=== PATIENT | male | born 1960 | race Caucasian/White ===

== ENCOUNTER 2020-12-21 21:09 | Inpatient (IN) | payer OTHER ==
[~2020-12-21] VITALS: Ht 180.3 cm; Wt 72.6 kg
[~2020-12-21 21:09] MED LIST: ASPIR 8181 MG PO; ASPIRIN EC81 M1; ASPIRIN325 PO; B COMPLEX-VITA1 EACH; EFFIENT10 MG OR; FISH OIL 1,0001 EAC5 OR; FISHOIL; FLAX OIL1000 MG; GENTAMICIN SU3 MG/ML INTRAOCULR; LISINOPRIL10 MG PO; MINIPRIN81 MG; NITROGLYCERIN0.4 MG SUBLING; SIMVASTATIN80 MG PO; VITAMIN B-125000 MCG OR; VITAMIN D-32000 UNIT OR; VITAMIN E400 UNIT; XANAX1 MG PO
[2020-12-21 21:12] VITALS: BP 152/100
[2020-12-21 21:26] LABS: HEMATOCRIT 50.3 % (42.0-52.0); HEMOGLOBIN 16.7 gm/dL (14.0-18.0); MCH 31.3 pg (26.0-34.0); MCHC 33.2 g/dL (28.0-37.0); MCV 94.4 fL (80.0-100.0); MPV 7.7 fl. (7.2-11.1); RBC 5.33 mil/uL (4.50-6.00); RDW-CV 14.2 % (10.5-14.5)
[2020-12-21 21:37] LABS: CALCIUM 9.4 mg/dL (8.5-10.1); CREATININE 1.4 mg/dL (0.6-1.3); POTASSIUM 3.5 mmol/L (3.5-5.1)
[2020-12-21 21:41] LABS: ACETAMINOPHEN < 2 ug/mL (10-30); ALBUMIN 4.2 g/dL (3.4-5.0); ALCOHOL < 10 mg/dL (<10); SALICYLATE 4.9 mg/dL (2.8-20.0); TOTAL BILIRUBIN 1.1 mg/dL (<0.1-1.0); TOTAL PROTEIN 7.8 g/dL (6.4-8.2)
[2020-12-21 22:37] LABS: URINE BLOOD 1+ (Negative); URINE COLOR YELLOW; URINE GLUCOSE-RANDOM NEGATIVE (Negative); URINE KETONES NEGATIVE (Negative); URINE LEUKOCYTES NEGATIVE (Negative); URINE NITRITE NEGATIVE (Negative); URINE PROTEIN 2+ (Negative); URINE SPECIFIC GRAVITY >= 1.030 (1.005-1.030); URINE UROBILINOGEN 0.2 E.U./dl (0.2-1.0)
[2020-12-21 22:42] LABS: ICTOTEST (BILI CONFIRMATORY) Negative (Negative); URINE BILIRUBIN 1+ (Negative); URINE CLARITY HAZY
[2020-12-21 22:44] LABS: AMP/METHAMP Negative (Negative); BARBITURATES Negative (Negative); BENZODIAZEPINES POSITIVE (Negative); COCAINE Negative (Negative); METHADONE Negative (Negative); OPIATES Negative (Negative); PCP Negative (Negative); THC Negative (Negative)
[2020-12-21 23:00] LABS: HYALINE CASTS 0-3 Few /LPF (None Seen); MUCUS 4-6 Moderate strn/LPF (None Seen); SQUAMOUS 0-3 Few /LPF (0-3)
[2020-12-21 23:01] LABS: BACTERIA 1-9 Few /HPF (None Seen); URINE RBC 3-10 Few /HPF (0-2); URINE WBC 0-5 Rare /HPF (0-5)
[2020-12-21 23:02] LABS: AMORPHOUS URATES Few /LPF (None Seen)
[2020-12-22] VITALS (7 sets, daily range): BP systolic 135–179; BP diastolic 80–98
--- NOTE | 2020-12-22 10:07 | EKG ---
[place] [address] ELECTROCARDIOGRAM REPORT Name: TORIE MONGE Room: [address] M.R.#: [id number] Admission: 12/21/20 Attend Phys: Elmo Mc, Discharge: Date of : 62 Date of Service: 12/21/202119 Report #: [id number] THIS REPORT FOR: //name// [facility] ED Test Date: 2020-12-21 Test Time: 21:20:40 Pat Name: TORIE MONGE Department: Room: [facility] Gender: M Human Services Care Specialist: SCOTT : 1960 Requested By: Jazmin Covarrubias Order Number: [id number] MD: Kendell Rocha Measurements Intervals [place] Rate: 78 P: 52 [place]: 143 QRS: 46 QRSD: 92 T: 31 QT: 401 QTc: 457 Interpretive Statements Sinus rhythm Consider left ventricular hypertrophy Baseline wander in lead(s) V2 Compared to ECG 12/30/2016 18:16:09 No significant changes Electronically Signed On 12-22-2020 10:07:43 CDT by Kendell Rocha [email or web address] <ELECTRONICALLY SIGNED> By: Kendell Rocha MD, [facility] 12/22/201006 19 19 Kendell Rocha MD, [facility] /EPI
--- NOTE | 2020-12-22 15:37 | NUR ---
Arrived to 215. The patient is alert.Denies pain. Transfers with stand by assist. IV access LAC.
[2020-12-23 04:07] VITALS: BP 134/70
[2020-12-23 07:35] LABS: HEMATOCRIT 41.9 % (42.0-52.0); MCH 31.3 pg (26.0-34.0); MCHC 33.4 g/dL (28.0-37.0); MCV 93.6 fL (80.0-100.0); RBC 4.48 mil/uL (4.50-6.00); RDW-CV 13.7 % (10.5-14.5); WBC 12.8 thou/uL (4.0-11.0)
[2020-12-23 08:00] VITALS: BP 140/73
[2020-12-23 08:17] LABS: ALBUMIN 3.3 g/dL (3.4-5.0); ALKALINE PHOSPHATASE 94 U/L (46-116); ANION GAP 5 mmol/L (7-16); BUN 9 mg/dL (7-18); CALCIUM 8.2 mg/dL (8.5-10.1); CHLORIDE 105 mmol/L (98-107); CHOLESTEROL 165 mg/dL (<200); CO2 32 mmol/L (21-32); CREATININE 1.3 mg/dL (0.6-1.3); GLUCOSE 90 mg/dL (70-99); HDL CHOLESTEROL 48 mg/dL (>40); LDL CHOLESTEROL 100 mg/dL (<100); POTASSIUM 3.9 mmol/L (3.5-5.1); SGOT 48 U/L (15-37); SGPT 53 U/L (30-65); SODIUM 142 mmol/L (136-145); TC:HDL 3.4 Ratio (Not establshd); TOTAL BILIRUBIN 1.1 mg/dL (<0.1-1.0); TOTAL PROTEIN 5.7 g/dL (6.4-8.2); TRIGLYCERIDE 89 mg/dL (<150); VLDL 18 mg/dL (<40)
[2020-12-23 08:19] LABS: SERUM ASSESSMENT Clear
--- NOTE | 2020-12-23 08:48 | NUR ---
PT IS ABLE TO COMMUNICATE HIS NEEDS TO STAFF EFFECTIVELY. HE HAS DENIED THE NEED FOR PAIN MEDICATION UP TO 0700 THIS MORNING. CIWA SCORING PROTOCOL MAINTAINED. POSSIBLE DISCHARGE SOON.
[2020-12-23 12:00] VITALS: BP 147/93
--- NOTE | 2020-12-23 13:05 | NUR ---
Nutrition: Pt admitted with AMS, depression. Seen for nsg risk. Pt stated he usually weighs 155-160#; I weighed him at 155# in bed today. H/o IA and stents, ETOH. Albumin 3. He said he feels like he has lost some wt recently d/t not wanting to cook for self. He explained he has depression and lives alone, and he doesn't have the motivation to cook for himself or to clean up a kitchen when he's only feeding one person. He eats small meals, enjoys cold cereal and canned soups and sandwiches. He does drink Ensure on occassion; agreed to one here. GAURI triplett. Encouraged MVI use at home as well. Mild risk.
--- NOTE | 2020-12-23 13:52 | NUR ---
Pt is A&O. Resides at home alone. Independent. No DME. No hx of HH or SNF. Goal is home. Neuro consulted. CM to offer community resources for depression, Pt out of room when CM went, will try again.
[2020-12-23 16:00] VITALS: BP 152/83
--- NOTE | 2020-12-23 16:24 | 2DMMODE ---
[place] [address] 2 D/M-MODE ECHOCARDIOGRAM Name: TORIE MONGE Room: [address] Gage Durbin#: [id number] Admission: 12/21/20 Attend Phys: Elmo Mc, Discharge: Date of : 62 Date of Service: 12/23/20 1624 Report #: [id number] THIS REPORT FOR: cc: FAM - No family physician/PCP FAM - No family physician/PCP Manoj Corrigan MD [facility] ~ APPROVED REPORT Study performed: 12/23/2020 10:18:08 EXAM: Comprehensive 2D, Doppler, and color-flow Echocardiogram Patient Location: In-Patient Room #: [facility] Status: routine BSA: 1.92 HR: 75 bpm BP: 134/70 mmHg Rhythm: NSR Other Information Study Quality: Good Indications CVA/TIA Echo Enhancing Agent Indication: Rule out Shunt Agent(s) / Amount(s) Used: Agitated Saline 10 cc 2D Dimensions IVSd: 11.04 (7-11mm) LVOT Diam: 20.44 (18-24mm) LVDd: 47.78 mm PWd: 8.59 (7-11mm) Ascending Ao: 33.96 (22-36mm) LVDs: 29.84 (25-40mm) Aortic Root: 32.80 mm Volumes Left Atrial Volume (Systole) LA ESV Index: 28.30 mL/m2 Aortic Valve AoV Peak Jus.: 1.28 m/s AO Peak Gr.: 6.59 mmHg LVOT Max P.29 mmHg AO Mean Gr.: 3.58 mmHg LVOT Mean P.04 [place] [address] 2 D/M-MODE ECHOCARDIOGRAM Name: TORIE MONGE Room: [address] Gage AlbaradoRPetros#: [id number] Admission: 12/21/20 Attend Phys: Elmo Mc, Discharge: Date of : 62 Date of Service: 12/23/20 1624 Report #: [id number] LVOT Max V: 1.04 m/s AO V2 VTI: 27.08 cm LVOT Mean V: 0.65 m/s JOSE (VTI): 2.46 cm2 LVOT V1 VTI: 20.33 cm Mitral Valve E/A Ratio: 1.12 MV Decel. Time: 176.12 ms MV E Max Jus.: 0.72 m/s MV PHT: 51.07 ms MVA (PHT): 4.31 cm2 TDI E/Lateral E': 7.20 E/Medial E': 10.29 Medial E' Jus.: 0.07 m/s Lateral E' Jus.: 0.10 m/s Pulmonary Valve PV Peak Jus.: 0.92 m/s PV Peak Gr.: 3.36 mmHg Tricuspid Valve RAP Estimate: 5.00 mmHg TR Peak Gr.: 22.21 mmHg RVSP: 27.00 mmHg PA Pressure: 27.00 mmHg Left Ventricle The left ventricle is normal size. There is normal LV segmental wall motion. There is normal left ventricular wall thickness. Left ventricular systolic function is normal. LVEF is 60-65%. Transmitral Doppler flow pattern suggests impaired LV relaxation. Right Ventricle The right ventricle is normal size. The right ventricular systolic function is normal. Atria The left atrium size is normal. The interatrial septum is intact with no evidence for an atrial septal defect. The right atrium size is normal. Aortic Valve The aortic valve is normal in structure. No aortic regurgitation is present. There is no aortic valvular stenosis. Mitral Valve The mitral valve is normal in structure. Trace mitral regurgitation. No evidence [place] [address] 2 D/M-MODE ECHOCARDIOGRAM Name: TORIE MONGE Room: [address] M.RPetros#: [id number] Admission: 12/21/20 Attend Phys: Elmo Mc, Discharge: Date of : 62 Date of Service: 12/23/20 1624 Report #: [id number] Tricuspid Valve The tricuspid valve is normal in structure. Trace tricuspid regurgitation. No pulmonary hypertension. Pulmonic Valve The pulmonary valve is normal in structure. Trace pulmonic regurgitation. Great Vessels The aortic root is normal in size. IVC is normal in size and collapses >50% with inspiration. Pericardium There is no pericardial effusion. <Conclusion> The left ventricle is normal size. There is normal left ventricular wall thickness. Left ventricular systolic function is normal. LVEF is 60-65%. Transmitral Doppler flow pattern suggests impaired LV relaxation. The interatrial septum is intact with no evidence for an atrial septal defect. Trace tricuspid regurgitation. No pulmonary hypertension. IVC is normal in size and collapses >50% with inspiration. <ELECTRONICALLY SIGNED> By: Manoj Corrigan MD, FACC 12/23/20 1624 1624 1624 Manoj Corrigan MD, FACC /INF
[2020-12-23 20:40] VITALS: BP 164/91
[2020-12-24 00:55] VITALS: BP 156/88
[2020-12-24 00:57] VITALS: BP 156/88
[2020-12-24 04:37] VITALS: BP 141/72
[2020-12-24 04:48] LABS: PHOSPHORUS* 4.1 mg/dL (2.5-4.9)
--- NOTE | 2020-12-24 04:59 | NUR ---
PT SLEPT OFF AND ON OVERNIGHT, RECEIVED MELATONIN REQUESTED WITH FAIR RESULT. AOX4, DENIES PAIN. CIWA SCORE ZERO. UP WITH STEADY GAIT TO BR TO VOID. RFA IVF INFUSING PER PUMP.RECEIVING LORAZEPAM FOR ANXIETY. TELE SR, ROOM AIR. TO HAVE MRI TODAY AND POSSIBLE DISCHARGE TO HOME. ABLE TO USE CALL LITE AND MAKE NEEDS KNOWN.
[2020-12-24 07:09] LABS: GLYCOHEMOGLOBIN (HGB A1C) 5.1 % (4.8-5.6)
[2020-12-24 09:00] VITALS: BP 150/73
[2020-12-24 12:50] VITALS: BP 150/73
--- NOTE | 2020-12-24 13:08 | NUR ---
patient discharged to home accompanied by family member.All discharge instructions completed . follow up visit . No issue vpicrd at this time.
--- NOTE | 2020-12-26 11:35 | EEG ---
[address] [address] EEG STUDY REPORT Name: TORIE MONGE Kyung Room: [address] [place] M.R.#: [id number] Admission: 12/24/20 Attend Phys: Elmo Mc MD Discharge: 12/24/20 Date of : 62 Report #: [id number] THIS REPORT FOR: cc: FAM - No family physician/PCP FAM - No family physician/PCP Sherwin Jacobsen MD ~ This patient has altered mental status. EEG is being done to evaluate for the possibility of seizure. EEG was done by placing the electrode by standard 10-20 system of electrode placement. Both referential and sequential montages were used for recording. Background activity was about 11 Hz and 40 microvolt. The patient went to sleep that is associated with bilateral slowing and vertex sharp waves. Photic stimulation is unremarkable. Throughout the record, no active epileptiform activity was noticed. IMPRESSION: This patient's electroencephalogram is within normal limits. Thank you very much for this referral. <ELECTRONICALLY SIGNED> By: Sherwin Jacobsen MD 12/26/20 1135 [id number] [id number] Jacobsen MD /nt
--- NOTE | 2020-12-26 11:35 | CON ---
[address] [address] CONSULTATION Name: TORIE MONGE Room: [address] [place] M.R.#: [id number] Admission: 12/24/20 Attend Phys: Elmo Mc MD Discharge: 12/24/20 Date of : 62 Report #: [id number] THIS REPORT FOR: cc: FAM - No family physician/PCP FAM - No family physician/PCP Sherwin Jacobsen MD ~ DATE OF CONSULTATION: 12/23/2020 HISTORY OF PRESENT ILLNESS: This is a 60-year-old male patient who gives somewhat of an unusual history. This patient has taken Xanax for a long time. He said that he was taking Xanax 2 mg at night on a regular basis and then as necessary. He had a refill on his Xanax, but did not get it refilled, so he was without any Xanax for about 1 week. The patient did not sleep for several days. That has also happened to him in the past. He also used to drink alcohol on a regular basis and he did not drink any alcohol either. 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 He had an episode where he was confused and was not oriented. He lives alone and therefore nobody noticed any unusual activity, and he does not remember anything about that. He did not have any tongue biting. He did not have any urinary incontinence. He is back to his baseline. REVIEW OF SYSTEMS: Indicate significant psychiatric problems in the past. He is being followed by his psychiatrist. He has heart issues and had a stent placement. He has high cholesterol. He had a history of VT. He has some testicular problems in the past. He does have hypertension, but he is not a diabetic. This was his relevant 14-point review of system. PAST MEDICAL HISTORY: Positive for pretty significant depression and anxiety. FAMILY HISTORY: Unremarkable. SOCIAL HISTORY: He smokes. He drinks alcohol. He is somewhat evasive in how much he drinks alcohol, but does look like he drinks pretty significant amount. PHYSICAL EXAMINATION: NEUROLOGIC: Indicate, he is alert, responsive, able to follow simple and complex commands. He feels back to his baseline. His cranial nerve examination and neuromuscular examination is at his baseline. He has a position sense on both sides. His reflexes are still elicitable. His pulses are present. There is no meningeal sign. There is no carotid bruit in this patient. CARDIAC: Appear unremarkable. ABDOMEN: Also appear unremarkable. LUNGS: He has no respiratory difficulty. VITAL SIGNS: His blood pressure is 134/70, respirations 16, pulse is 70, temperature [place] 98[place] [address] CONSULTATION Name: TORIE MONGE Room: [address] [place] .R.#: [id number] Admission: 12/24/20 Attend Phys: Elmo Mc MD Discharge: 12/24/20 Date of : 62 Report #: [id number] LABORATORY DATA: His white count was up a little bit at 16, but it is coming down. He had no thyroid mass. There is no carotid bruit. He was admitted here in 2017 and he had an episode of syncope at that time. He did have a CT scan of the head, which appear unremarkable. IMPRESSION: It would appear that most likely etiology for this patient's symptoms is benzo withdrawal because of stopping Xanax about a week ago, insomnia, and pretty significant psychiatric issue. I recommended a Psychiatric consult, he does not want that. He wants to see his own psychiatrist at discharge, but he will let us do an MRI and EEG and we will go ahead and do that. If that is okay, the patient just needs to change his lifestyle and work with a psychiatrist about his medication in treating his insomnia. He may have had a seizure, although it is difficult to say and if it is a seizure, it will be more likely related to his insomnias, benzo withdrawal, etc., and he needs to talk to his psychiatrist about that. By State Law, he cannot drive for 6 months if he has a seizure or suspected seizure. So it was recommended that he should not drive at the moment, then he can talk to the psychiatrist and if psychiatrist feel confident that it was either because of insomnia or a benzo withdrawal and he can treat that, then he can change that restriction if he or she wants that. If his MRI and EEG is normal, then I will have limited thing to add to the management of this patient. <ELECTRONICALLY SIGNED> By: Sherwin Jacobsen MD 12/26/20 1135 [id number] Jacobsen MD /nt
== END 2020-12-24 13:00 | disposition home or self-care (01) | DRG 69 ==
LOC: M.ERS 21:09 → M.TBA-ER 23:10 → M.2W 12-22 15:59
PROVIDERS: Internal Medicine; Personal Emergency Response Attendant; ADMIT Internal Medicine; ATTEND Internal Medicine
DX: G45.9 Transient cerebral ischemic attack, unspecified (principal); Z95.5 Presence of coronary angioplasty implant and graft; E78.00 Pure hypercholesterolemia, unspecified; I16.0 Hypertensive urgency; R56.9 Unspecified convulsions; I10 Essential (primary) hypertension; F32.9 Major depressive disorder, single episode, unspecified; F41.9 Anxiety disorder, unspecified; G47.00 Insomnia, unspecified; E78.5 Hyperlipidemia, unspecified; Z20.822 Contact with and (suspected) exposure to COVID-19; I25.10 Atherosclerotic heart disease of native coronary artery without angina pectoris; I25.2 Old myocardial infarction; Z79.899 Other long term (current) drug therapy; Z79.82 Long term (current) use of aspirin; Z82.49 Family history of ischemic heart disease and other diseases of the circulatory system